=== PATIENT | male | born 1995 | race Caucasian/White ===

== ENCOUNTER 2021-01-11 09:00 | Emergency (ER) | payer BC, OTHER ==
[2021-01-11 09:34] VITALS: BP 132/69; PULSE 100
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
== END 2021-01-11 10:00 | disposition home or self-care (01) ==
LOC: CC.ED 09:00
DX: S63.502A Unspecified sprain of left wrist, initial encounter (principal); V89.2XXA Person injured in unspecified motor-vehicle accident, traffic, initial encounter
CPT/HCPCS: 73110-LT; 99283

== ENCOUNTER 2024-02-23 16:27 | Emergency (ER) | payer BC ==
[2024-02-23] MEDS: Diphtheria,Pertussis(Acell),Tetanus Vaccine 0.5 ML Syringe IM ONE (17:01)
[2024-02-23] MEDS: Lidocaine 1% 5 ML VIAL INJECT ONE ×2 (17:04→17:05)
[2024-02-23] MEDS ORDERED: Lidocaine 1% 5 ML VIAL ONE (17:04)
[2024-02-23] MEDS ORDERED: Lidocaine 1% 5 ML VIAL INJECT ONE (17:15)
[2024-02-23] MEDS: Lidocaine 2% 5 ML SDV INJECT ONE (17:21)
[2024-02-23] MEDS: Take Home: Acetaminophen/HYDROcodone 325-5 MG, 2 Tab Pack PO ONE (17:40)
[2024-02-23] MEDS: Bacitracin/Neomycin/Polymyxin B Oint 0.9 GM U/D Packet TOP ONE (17:41)
== END 2024-02-23 18:09 | disposition home or self-care (01) ==
LOC: CC.ED 16:27
DX: S61.313A Laceration without foreign body of left middle finger with damage to nail, initial encounter (principal); Z23 Encounter for immunization; W23.1XXA Caught, crushed, jammed, or pinched between stationary objects, initial encounter
CPT/HCPCS: 12002; 73140-F2; 90471; 90715; 99283-25; A9270-GY; J3490